=== PATIENT | male | born 1965 | race African-American/Black ===

== ENCOUNTER 2017-05-15 17:52 | Emergency (ER) | payer MEDICAID ==
[~2017-05-15] VITALS: Ht 180.3 cm; Wt 72.1 kg
[2017-05-15] MEDS ORDERED: ASPIRIN 81 MG TABLET CHEW PO ONE (18:30)
[2017-05-15] MEDS ORDERED: SODIUM CHLORIDE FLUSH 10ML SYR IVF ONE (18:30)
[2017-05-15] MEDS ORDERED: SODIUM CHLORIDE 0.9% 1,000ML IVBOLUS ONE (18:30)
[2017-05-15] MEDS ORDERED: ASPIRIN 81 MG TABLET CHEW ONE (18:32)
[2017-05-15] MEDS ORDERED: ACETAMINOPHEN 325 MG TABLET ONE (18:55)
[2017-05-15] MEDS ORDERED: ACETAMINOPHEN 325 MG TABLET PO ONE (19:00)
[2017-05-15 19:46] LABS: BLOOD UREA NITROGEN 10 mg/dL (7-18)
[2017-05-15 19:51] LABS: ASPARTATE AMINO TRANSFERASE 21 U/L (15-37)
[2017-05-15 19:53] LABS: IS PT STATUS REG ER OR PRE ER? YES
[2017-05-15] MEDS ORDERED: OMNIPAQUE 350 MG/ML, 100ML BOTTLE ONE (20:39)
[2017-05-15 21:32] VITALS: BP 114/69
== END 2017-05-15 21:34 | disposition home or self-care (01) ==
LOC: ED 19:18
DX: R53.1 Weakness (principal); E86.0 Dehydration; Z87.891 Personal history of nicotine dependence
CPT/HCPCS: 36415; 71020; 71275; 80053; 81003; 84484; 85025; 85379; 93005; 96360; 99285; J7030; Q9967

== ENCOUNTER 2017-10-04 19:11 | Emergency (ER) | payer MEDICAID ==
[~2017-10-04] VITALS: Ht 182.9 cm; Wt 76.0 kg
[2017-10-04] MEDS ORDERED: AZITHROMYCIN 500 MG TABLET ONE (19:27)
[2017-10-04] MEDS ORDERED: CEFTRIAXONE 250 MG ONE (19:27)
[2017-10-04] MEDS ORDERED: CEFTRIAXONE 250 MG IM ONE (19:30)
[2017-10-04] MEDS ORDERED: AZITHROMYCIN 500 MG TABLET PO ONE (19:30)
== END 2017-10-04 20:00 | disposition home or self-care (01) ==
LOC: ED 19:54
DX: Z20.2 Contact with and (suspected) exposure to infections with a predominantly sexual mode of transmission (principal); A74.9 Chlamydial infection, unspecified; A54.9 Gonococcal infection, unspecified
CPT/HCPCS: 87491; 87591; 96372; 99284; J0696

== ENCOUNTER 2018-04-12 07:38 | Emergency (ER) | payer MEDICAID ==
[~2018-04-12] VITALS: Ht 182.9 cm; Wt 73.1 kg
[2018-04-12 07:39] VITALS: BP 137/85
== END 2018-04-12 08:48 | disposition home or self-care (01) ==
LOC: ED 08:15
DX: K02.9 Dental caries, unspecified (principal); K08.89 Other specified disorders of teeth and supporting structures
CPT/HCPCS: 99283

== ENCOUNTER 2019-02-21 20:17 | Emergency (ER) | payer MEDICAID ==
[~2019-02-21] VITALS: Ht 182.9 cm; Wt 76.1 kg
[2019-02-21 20:20] VITALS: BP 182/77
[2019-02-21] MEDS ORDERED: HYDROcodone/APAP 5/325 TABLET PO ONE (21:00)
[2019-02-21] MEDS ORDERED: HYDROcodone/APAP 5/325 TABLET ONE (21:03)
== END 2019-02-21 21:30 | disposition home or self-care (01) ==
LOC: ED 21:20
DX: K02.9 Dental caries, unspecified (principal); K04.7 Periapical abscess without sinus; Z87.891 Personal history of nicotine dependence
CPT/HCPCS: 99283

== ENCOUNTER 2020-01-26 09:46 | Emergency (ER) | payer MEDICAID ==
[~2020-01-26] VITALS: Ht 175.3 cm; Wt 72.3 kg
[2020-01-26 09:49] VITALS: BP 115/77
[2020-01-26] MEDS ORDERED: HYDROcodone/APAP 7.5-325MG/15ML UDC PO ONE (10:30)
[2020-01-26] MEDS ORDERED: DEXAMETHASONE 4 MG TABLET PO ONE (10:30)
[2020-01-26] MEDS ORDERED: DEXAMETHASONE 4 MG TABLET ONE (10:36)
[2020-01-26] MEDS ORDERED: HYDROcodone/APAP 7.5-325MG/15ML UDC ONE (10:37)
== END 2020-01-26 11:04 | disposition home or self-care (01) ==
LOC: ED 10:48
DX: J03.90 Acute tonsillitis, unspecified (principal); R50.9 Fever, unspecified
CPT/HCPCS: 99283